=== PATIENT | female | born 1970 | race Caucasian/White ===

== ENCOUNTER 2017-07-25 13:38 | Outpatient (CLI) | payer OTHER ==
--- NOTE | 2017-07-31 14:35 | HISTORY AND PHYSICAL REPORT ---
REFERRING PHYSICIAN: Dr. Poonam Joel Dear Dr. Joel: HISTORY OF PRESENT ILLNESS: I had the opportunity of seeing Angella Galvan today as an outpatient at [facility]. As you are aware, Angella is a very nice 46-year-old white female who presents today with right-sided chest wall pain which radiates from the back around the right flank at times into the right chest wall and under the right breast. She tells me this began about 2 months ago. It became worse in June. 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 She has symptoms which appear to be significant for right thoracic radiculitis. She denies pain on the left. She denies pain radiating down the legs. She denies arm pain. She has had home exercise and chiropractic manipulation. She is currently on tramadol, Flexeril and Neurontin. She says Neurontin helps a great deal. She is on 600 mg 3 times a day. She takes a half of hydrocodone each afternoon so that she can make it through her work day. She had a CT performed on June 28, 2017, of the chest and an evaluation on the thoracic spine and it appears that she has at T5-T6 an amount of anterolisthesis with a posterior osteophyte which is subarticular and in the lateral recess. She has had no other MRIs or any other studies. PAST MEDICAL HISTORY: 1. History of nose or sinus problems. 2. Depression. 3. Frequent headaches. 4. Pain problems. PAST SURGICAL HISTORY: 1. Bilateral tubal ligation. 2. Uterine ablation. 3. Nasal sinus surgery. CURRENT DAILY MEDICATIONS: 1. Flexeril 5 mg p.r.n. 2. Gabapentin 300 mg 2 every 8 hours. 3. Lidocaine Gel topically p.r.n. 4. Tylenol No. 3 half tablet p.r.n. 5. B-Complex 1 tablet daily. 6. Magnesium daily. 7. Vitamin D3, 1000 international units daily. 8. Vitamin E 400 international units daily. 9. Bngvcx-I-Hemvwzldp 400/200 mg daily. 10. Calcium/magnesium/zinc/vitamin D multi-tab 1 daily. 11. [place] 1000 mg daily. 12. Vitamin C 500 mg daily. 13. Garlic 500 mg daily. 14. Tumeric 500 mg daily. 15. Fhmz-bwj-zxpmbfn nasal spray daily. 16. Allergy Relief once daily. ALLERGIES: She has no known drug allergies. SOCIAL HISTORY: She is a former tna-lgod-hggx-per-day smoker. She quit 6 to 7 months ago. She drinks alcohol socially approximately twice per month. She admits to recreational drug use in her 20s, none recent. She has been for 3 months. She has 2 children. She lives at home with her . She is currently employed. Occupation is in maintenance. She obtained an Associate's Degree. She is not currently disabled. FAMILY HISTORY: Mother with diabetes and asthma. Sister with asthma. REVIEW OF SYSTEMS: In the last month or so, she reports a weight gain, cough or cold, and headaches. Pain is worse as the day progresses or with moving, turning, lifting , or bending over. Pain is improved with lying down and heat. PHYSICAL EXAMINATION: General: The patient is well nourished, well developed, and in no apparent distress. Awake, alert, and oriented. HEENT: Pupils are equal, round, and reactive to light and accommodation. Extraocular movements intact. No facial droop. Neck: There is full range of motion of the cervical spine. No evidence of adenopathy. Thyroid is nontender, not enlarged. Carotids are without bruits. Chest: Clear to auscultation bilaterally. Normal chest excursion. Heart: Regular rate and rhythm without murmur. Abdomen: Benign. Normoactive bowel sounds. Motor/sensory: Intact in the upper and lower extremities. Moves all extremities freely. Back: There are normal cervical, thoracic and lumbar curvatures. There are negative sacroiliac joint findings bilaterally. No evidence of pain or tenderness over the facet joints. Negative piriformis bilaterally. Negative straight leg raise. No evidence of dermatomal weakness or numbness in the lower extremities. Bilateral negative femoral nerve stretch. Patellar tendons are 2+ and equal bilaterally. ASSESSMENT: Likely thoracic radiculitis. PLAN: Consider an MRI of the thoracic spine. I will place a T5 epidural injection on the right side today under fluoroscopy and have her follow up with us in a few weeks. I have discussed activity pacing, lifting and twisting restrictions and the use of medication. Plan now for a thoracic epidural steroid injection for thoracic radiculitis. I personally spoke with the insurance company and got her approved for treatment today. Dr Joel, thank you for allowing me to take part in the care of this nice lady. I appreciate the opportunity to take part in the care of your patients. cc: Dr. Poonam VARMA
--- NOTE | 2017-07-31 15:14 | THORACIC ESI FLUORO ---
PREOPERATIVE DIAGNOSIS: Right thoracic radiculitis. PROCEDURE: Right T5-T6 epidural steroid injection with fluoroscopic guidance. DESCRIPTION OF PROCEDURE: Consent was obtained after risks were fully explained including bleeding, infection, nerve damage, worsening of symptoms with no improvement. The patient was positioned prone on the fluoroscopic procedure table and sterile prep and drape were applied. A 1% lidocaine local anesthetic skin wheal was raised. An epidural needle was advanced with normal saline loss of resistance technique under direct fluoroscopic guidance with a right paracentral approach at the T5-T6 interspace. Loss of resistance was obtained and an injection of nonionic contrast revealed adequate spread within the epidural space followed by injection of the medication. The stylet was replaced in the needle and the needle was removed from the back. The patient tolerate the procedure well. The back was cleaned and a bandage was applied over the injection site. The patient was monitored for 20 minutes following the procedure. During this time the vital signs remained stable and the patient experienced no adverse sequelae. The patient was discharged home in good condition. ASSESSMENT: Right thoracic radiculitis. PLAN: Right T5-T6 epidural steroid injection with fluoroscopic guidance. We will order an MRI of the thoracic spine. FOLLOW UP: Follow up next month. cc: Dr. Poonam VARMA
== END 2017-07-25 13:40 ==
LOC: OUT 13:38
PROVIDERS: ATTEND Anesthesiology Pain Medicine
DX: M54.14 Radiculopathy, thoracic region (principal)
CPT/HCPCS: 62321; 99213; J3301; Q9966

== ENCOUNTER 2017-08-22 10:42 | Outpatient (CLI) | payer OTHER ==
--- NOTE | 2017-08-24 09:34 | PAIN CLINIC PROGRESS NOTES ---
REASON FOR VISIT: I had the opportunity of seeing Angella Galvan today as an outpatient at [facility]. Ms. Galvan is a very pleasant 47-year-old white female who I saw with relatively severe right-sided thoracic radiculitis which was radiating into the right shoulder and right chest wall. She received a T5-T6 epidural injection and her symptoms are markedly improved. She rates them at better than 70% improved and she has been, for the most part, back to work. She still has occasional pain particularly when she is having to lift heavier boxes at her job; and at this point, I think she would benefit from a repeat injection. We have not been able to obtain an MRI study and I do not currently have approval to repeat treatment from her insurance provider, as they are requesting 6 weeks of physical therapy, and in the thoracic spine, I believe this would be of very little benefit. ASSESSMENT: Thoracic radiculitis, now better than 70% improved following thoracic epidural steroid injection. PLAN: That being stated, I am going to prescribe 6 weeks of physical therapy. I encouraged her to continue pursuit to obtain an MRI study of the thoracic spine , and I will provide her with a 25-pound weight restriction for work and follow her up in 6 to 8 weeks. cc: Dr. Poonam VARMA
== END 2017-08-22 10:43 ==
LOC: OUT 10:42
PROVIDERS: ATTEND Anesthesiology Pain Medicine
DX: M54.14 Radiculopathy, thoracic region (principal)
CPT/HCPCS: 99213

== ENCOUNTER 2017-10-24 08:10 | Outpatient (CLI) | payer OTHER ==
--- NOTE | 2017-10-26 17:04 | PAIN CLINIC PROGRESS NOTES ---
REASON FOR VISIT: Ms. Galvan follows up with me with a history of thoracic radiculitis. This is a very nice 47-year-old white female who has right lateral chest wall pain and at times left lateral chest wall pain with a presumptive diagnosis of thoracic disk protrusion and radiculitis. I have treated her with a thoracic epidural steroid injection and her symptoms are much improved. She is still having pain on a daily basis, particularly at the end of her work shift. She does have to bend and twist. I have talked to her about her activity, activity pacing, and avoidance of lifting and twisting. ASSESSMENT: Thoracic radiculitis with continued symptoms but improved following thoracic epidural injection. PLAN: At this point, I have told her I cannot further discuss her underlying condition or treatment options without an MRI. She has had a course of physical therapy and I am going to reorder an MRI study of the thoracic spine. cc: Dr. Poonam VARMA
== END 2017-10-24 08:11 ==
LOC: OUT 08:10
PROVIDERS: ATTEND Anesthesiology Pain Medicine
DX: M54.14 Radiculopathy, thoracic region (principal)
CPT/HCPCS: 99213